=== PATIENT | female | born 1980 | race Caucasian/White ===

== ENCOUNTER 2019-08-11 11:01 | Emergency (ER) | payer MEDICAID, SELFPAY ==
[2019-08-11 11:28] VITALS: BP 119/60; PULSE 80; RESP 18; TEMP 36.3; O2SAT 98
--- NOTE | 2019-08-11 12:57 | ED.DENTAL ---
HPI - Dental/Oral General Chief complaint: Dental/Oral Stated complaint: Tooth pain Source: patient Mode of arrival: ambulatory Limitations: no limitations History of Present Illness HPI Narrative: This 38-year-old developed swelling and pain in her left jaw 3 days ago. She states she had chills last night but no fever. She is attempting to get in to see a dentist or oral surgeon to excise some of her decayed teeth. She has sulindac listed as an allergy but took ibuprofen morning with no allergy symptoms. She is sexually active/does not use control. LMP onset 1 week ago Related Data Home Medications Medication Instructions Recorded Confirmed clonazepam 0.5 mg PO BID 08/11/19 08/11/19 Allergies Allergy/AdvReac Type Severity Reaction Status Date / Time azithromycin Allergy Unknown Verified 06/23/15 10:09 nortriptyline Allergy Unknown Verified 06/23/15 10:47 sulindac Allergy Unknown Verified 06/23/15 10:47 Review of Systems Constitutional: Constitutional: Reports no additional constitutional complaints Gastrointestinal: Gastrointestinal: Denies diarrhea, Denies nausea and Denies vomiting [facility] Past Medical History Medical History Anxiety, generalized Social History Social History Smoking status: Current every day smoker Exam Const: General: no acute distress HENMT: Other: Swelling of left lower face/ no erythema. This area is tender but not indurated. She is able to fully open his mouth. She has complete deterioration of the left lower mandibular teeth down to the gums. There is no site of gum swelling or purulent d.c. Neck: Neck: no lymphadenopathy noted Course Vital Signs Vital signs: Vital Signs Temperature 36.3 C L 08/11/19 11:28 Pulse Rate 80 08/11/19 11:28 Respiratory Rate 18 08/11/19 11:28 Blood Pressure 119/60 08/11/19 11:28 Pulse Oximetry 98 08/11/19 11:28 Temperature 36.3 C L 08/11/19 11:28 Pulse Rate 80 08/11/19 11:28 Respiratory Rate 16 08/11/19 13:11 Blood Pressure 119/60 08/11/19 11:28 Pulse Oximetry 98 08/11/19 11:28 MDM - Dental/Oral MDM Narrative Medical decision making narrative: Evidence of tooth abscess formation Differential Diagnosis Differential diagnosis: Likely gingival abscess, dental caries and dental abscess Discharge Plan Discharge Clinical Impression: Dental abscess, Dental caries Patient Disposition: Home, Self-Care Condition: Stable Instructions: Antibiotic Form, Dental Abscess (ED) Additional Instructions: Return if increasing pain, swelling or fever. Follow up with a dentist See primary care doctor to start control stop smoking Prescriptions: New naproxen [EC-Naproxen] 500 mg tablet,delayed release (DR/EC) 500 mg PO BID PRN (Reason: pain) Qty: 14 RF: 0 amoxicillin 500 mg capsule 500 mg PO TID Qty: 21 RF: 0 No Action clonazepam 0.5 mg tablet 0.5 mg PO BID RF: 0 Interventions: Discharge Disposition Last Done: 08/11/19 13:11 Follow-up/Referrals: UNKNOWN,DOCTOR [Primary Care Provider] - Stand Alone Forms: Work/School Release IP Time of Disposition: 13:01 Discharge Date/Time: 08/11/19 13:12
[2019-08-11 13:11] VITALS: RESP 16
== END 2019-08-11 13:12 | disposition home or self-care (01) ==
PROVIDERS: Emergency Provider Family Medicine
DX: K04.7 Periapical abscess without sinus (principal); K02.9 Dental caries, unspecified
CPT/HCPCS: 99283

== ENCOUNTER 2020-06-23 20:13 | Emergency (ER) | payer OTHER, SELFPAY ==
--- NOTE | ~2020-06-23 | XR_ITS ---
EXAMINATION: XR chest 2V DATE: 06/23/2020 21:01 INDICATION: Shortness of breath. Wheezing. TECHNIQUE: Frontal and lateral views of the chest were obtained. COMPARISON: Chest 2 views 10/22/2017 FINDINGS: The chest demonstrates clear lungs without pneumonia, pleural effusion, or pneumothorax. Th e heart size is normal. There is an old healed left rib fracture. IMPRESSION: 1. No acute cardiopulmonary disease. Reviewed, dictated and finalized at location A.
[2020-06-23 20:42] VITALS: PULSE 74; RESP 16; O2SAT 94
[2020-06-23] MEDS: IPRATROPIUM 0.5 MG/ALBUTEROL SULFATE 2.5 MG AMPUL.NEB 3 ML INHALATION (20:42)
--- NOTE | 2020-06-23 20:42 | ED.SOB ---
HPI - SOB/Dyspnea General Chief Complaint: Shortness of Breath/Dyspnea Stated Complaint: possible bronchitis Source: patient and family Mode of arrival: ambulatory History of Present Illness HPI Narrative: This is a 39-year-old female smoker that presents with a 3 month history of shortness of breath with some wheezing that gotten worse over last couple of days with no fever or chills some audible wheezing with some mild cough nonproductive with some shortness of breath with no chest pain or chest tightness no nausea vomiting no abdominal pain. The patient is a smoker and currently no abdominal pain no nasal flaring. MD elicited complaint: shortness of breath Pertinent past history: COPD Onset (ago): month(s) Timing: intermittent Severity: moderate Exacerbating factors: nothing Relieving factors: bronchodilators Related Data Home Medications Medication Instructions Recorded Confirmed clonazepam 0.5 mg PO BID 08/11/19 08/11/19 Allergies Allergy/AdvReac Type Severity Reaction Status Date / Time azithromycin Allergy Unknown Verified 06/23/15 10:09 nortriptyline Allergy Unknown Verified 06/23/15 10:47 sulindac Allergy Unknown Verified 06/23/15 10:47 Review of Systems Review of Systems: All systems reviewed & are unremarkable except as noted in HPI and below PMFSH Past Medical History Medical History (Updated 06/23/20 @ 20:45 by Thony Vegas MD) Anxiety, generalized Social History Social History Smoking status: Current every day smoker Exam Const: General: no acute distress Orientation/consciousness: patient oriented x3 HENMT: Head: normal to inspection Eyes: Pupils: Equal, round and reactive pupils present Neck: Neck: normal visual inspection Chest: Chest palpation & inspection: normal inspection of the chest Resp: Effort & Inspection: normal respiratory effort Auscultation: wheezes and diminished lung sounds GI: GI Palp: Yes Soft to palpation : General: Yes no CVA tenderness Skin: General skin exam: normal color Rashes: no rashes Neuro: General: patient oriented x3 Psych: Mental Status: mental status grossly normal Course Course Emergency Course: patient received DuoNebs and Solu-Medrol along with a dose of ceftriaxone symptoms have improved advised to establish care with primary care physician and take medicine as prescribed. Critical Care Time Critical Care Time Critical Care Time: No Discharge Plan Discharge Clinical Impression: Acute bronchitis Qualifiers: Bronchitis organism: unspecified organism Qualified Code(s): J20.9 - Acute bronchitis, unspecified Patient Disposition: Home, Self-Care Condition: Stable Instructions: Antibiotic Form, Acute Bronchitis (ED) Additional Instructions: follow-up with primary care physician and advised to establish care, take medicine as prescribed. Prescriptions: New levofloxacin 500 mg tablet 500 mg PO DAILY Qty: 30 RF: 5 albuterol sulfate [ProAir HFA] 90 mcg/actuation HFA aerosol inhaler 2 puff inhalation QID PRN (Reason: shortness of breath or wheezing) Qty: 6.7 RF: 0 methylprednisolone [Medrol (Scott)] 4 mg tablets,dose pack See Rx Instructions .ROUTE .COMPLEX Qty: 21 RF: 0 levofloxacin 500 mg tablet 500 mg PO DAILY Qty: 7 RF: 0 No Action clonazepam 0.5 mg tablet 0.5 mg PO BID RF: 0 naproxen [EC-Naproxen] 500 mg tablet,delayed release (DR/EC) 500 mg PO BID PRN (Reason: pain) Qty: 14 RF: 0 amoxicillin 500 mg capsule 500 mg PO TID Qty: 21 RF: 0 Follow-up/Referrals: UNKNOWN,DOCTOR [Primary Care Provider] -
[2020-06-23 20:49] VITALS: PULSE 85; RESP 16; O2SAT 98
[2020-06-23 20:53] VITALS: BP 137/87; PULSE 77; RESP 20; TEMP 36.7; O2SAT 94
[2020-06-23] MEDS: LIDOCAINE HCL 1% LOCAL INJ 20 ML VIAL (21:10)
[2020-06-23] MEDS: cefTRIAXone 1 GM VIAL IM (21:10)
[2020-06-23] MEDS: methylPREDNISolone SOD SUCC 40 MG VIAL IM (21:10)
[2020-06-23 21:27] VITALS: BP 140/88; PULSE 80; RESP 20; TEMP 36.7; O2SAT 97
== END 2020-06-23 21:29 | disposition home or self-care (01) ==
PROVIDERS: Emergency Provider Emergency Medicine
DX: J20.9 Acute bronchitis, unspecified (principal)
CPT/HCPCS: 71046; 94640; 96372; 99283; 99284; J0696; J2920

== ENCOUNTER 2020-10-24 23:29 | Emergency (ER) | payer OTHER, SELFPAY ==
[2020-10-24 23:29] VITALS: BP 124/90; PULSE 75; RESP 20; TEMP 36.3; O2SAT 100
--- NOTE | 2020-10-24 23:40 | ED.EAR ---
HPI - Ear Problem General Chief complaint: Ear Stated complaint: Left Ear Pain Time Seen by Provider: 10/24/20 23:40 History of Present Illness HPI Narrative: 40-year-old female patient is here with complaints of something in her ears for several months now. she denies any injury or any awareness of any foreign body there. Patient denies any routine medications or drugs Related Data Allergies Allergy/AdvReac Type Severity Reaction Status Date / Time azithromycin Allergy Unknown Rash Verified 06/23/20 20:59 nortriptyline Allergy Unknown Unknown Verified 06/23/20 20:59 sulindac Allergy Unknown Unknown Verified 06/23/20 20:59 Review of Systems Review of Systems: All systems reviewed & are unremarkable except as noted in HPI and below PMFSH Past Medical History Medical History (Updated 10/24/20 @ 23:48 by Rosie Etienne MD) Anxiety, generalized Social History Social History Smoking status: Current every day smoker Gender identity (if verbalized by the patient): Female Exam Narrative: alert female who appears very anxious and somewhat restless. No acute distress. Stable vital signs HEENT external ears are normal bilaterally. There is no swelling or pre tragal sign. And canals are clear bilaterally and TMs are visualized bilaterally. There is no cerumen or any foreign body noted in the ears. The rest of the HEENT is normal. There is no obvious respiratory distress. Heart tones are regular. Patient appears very anxious . rest of the physical examination is normal. Course Course Emergency Course: Patient has been reassured that there is no foreign body or evidence of infection the ears. She has been advised to use [id number] r eardrops. She leaves without written discharge instructions. Discharge Plan Discharge Clinical Impression: Anxiety, generalized, Irritation of left ear Patient Disposition: Home, Self-Care Condition: Stable Follow-up/Referrals: UNKNOWN,DOCTOR [Primary Care Provider] -
== END 2020-10-24 23:45 | disposition home or self-care (01) ==
PROVIDERS: Emergency Provider Emergency Medicine
DX: R41.9 Unspecified symptoms and signs involving cognitive functions and awareness (principal); H92.02 Otalgia, left ear
CPT/HCPCS: 99281; 99282

== ENCOUNTER 2020-11-07 01:55 | Emergency (ER) | payer OTHER, SELFPAY ==
[2020-11-07 02:24] VITALS: BP 106/72; PULSE 80; RESP 18; TEMP 36.6; O2SAT 98
--- NOTE | 2020-11-07 03:05 | ED.EAR ---
HPI - Ear Problem General Chief complaint: Ear Stated complaint: Ear Pain Time Seen by Provider: 11/07/20 01:57 Source: patient and RN notes reviewed Mode of arrival: ambulatory Limitations: no limitations History of Present Illness MD Complaint: ear pain Location: bilateral Duration: constant Severity: moderate Relieving factors: nothing Exacerbating factors: nothing Discharge from ear: Reports no Associated symptoms ear: tinnitus Treatment prior to arrival: none Related Data Allergies Allergy/AdvReac Type Severity Reaction Status Date / Time azithromycin Allergy Unknown Rash Verified 06/23/20 20:59 nortriptyline Allergy Unknown Unknown Verified 06/23/20 20:59 sulindac Allergy Unknown Unknown Verified 06/23/20 20:59 Review of Systems Review of Systems: All systems reviewed & are unremarkable except as noted in HPI and below Constitutional: Constitutional: Reports as per HPI and Reports no additional constitutional complaints Eyes: Eyes: Reports as per HPI and Reports no additional eye complaints ENT: Reports system reviewed and no additional complaints, except as documented and Reports as per HPI Cardiovascular: Cardiovascular: Reports as per HPI and Reports no additional cardiovascular complaints Respiratory: Respiratory: Reports as per HPI and Reports no additional respiratory complaints Gastrointestinal: Gastrointestinal: Reports as per HPI and Reports no additional gastrointestinal complaints Genitourinary: Genitourinary: Reports no additional female genitourinary complaints and Reports as per HPI Musculoskeletal: Musculoskeletal: Reports no additional musculoskeletal complaints and Reports as per HPI Integumentary/Breasts: Skin/Breast: Reports system reviewed and no additional complaints, except as docu and Reports as per HPI Neurologic: Reports system reviewed and no additional complaints, except as documented and Reports as per HPI Psychiatric: Psychiatric: Reports no additional psychiatric complaints and Reports as per HPI Endocrine: Endocrine: Reports no additional endocrine complaints and Reports as per HPI Hematologic/Lymphatic: Hematologic/Lymphatic: Reports no additional hematologic/lymphatic complaints and Reports as per HPI Allergic/Immunologic: Allergic/Immunologic: Reports no additional allergic/immunologic complaints and Reports as per HPI PMFSH Past Medical History Medical History Anxiety, generalized Social History Social History Smoking status: Current every day smoker Gender identity (if verbalized by the patient): Female Exam Const: General: no acute distress and alert Nutritional Appearance: thin Orientation/consciousness: patient oriented x3 HENMT: Head: normal to inspection Ears: external ears normal General nose exam: Normal external nose present and Normal nares present Throat: posterior oropharynx normal Other: left TM was red and dull. Right TM was dull. no FB seen. Eyes: Conjunctivae: conjunctivae normal Pupils: Equal, round and reactive pupils present EOM: EOMs intact bilaterally Neck: Neck: normal visual inspection and no lymphadenopathy Chest: Chest palpation & inspection: normal inspection of the chest Resp: Effort & Inspection: normal respiratory effort Auscultation: clear to auscultation bilaterally Cardio: Rate: regular rate Rhythm: regular rhythm GI: Auscultation: normal bowel sounds : General: Yes no CVA tenderness Back/Spine/Pelvis: Back: no CVA tenderness Skin: General skin exam: normal color Rashes: no rashes Neuro: General: patient oriented x3, moves all extremities, no focal motor deficits and CN's II-XI intact bilaterally Speech: normal speech Extrem: General: normal to inspection and no pedal edema Psych: Appearance: grossly normal and well kempt Mental Status: mental status grossly normal Affect: normal affec
[2020-11-07] MEDS: IBUPROFEN 400 MG TABLET 800 MG PO (03:09)
[2020-11-07 03:17] VITALS: BP 110/64; PULSE 84; RESP 18; TEMP 36.6; O2SAT 98
== END 2020-11-07 03:24 | disposition home or self-care (01) ==
PROVIDERS: Emergency Provider Emergency Medicine
DX: H66.90 Otitis media, unspecified, unspecified ear (principal); H69.83 Other specified disorders of Eustachian tube, bilateral
CPT/HCPCS: 99283; A9270

== ENCOUNTER 2020-11-19 18:12 | Emergency (ER) | payer OTHER, SELFPAY ==
[2020-11-19 18:20] VITALS: BP 132/89; PULSE 72; RESP 20; TEMP 36.8; O2SAT 98
--- NOTE | 2020-11-19 18:41 | ED.EAR ---
HPI - Ear Problem General Chief complaint: Ear Stated complaint: something in ears Source: patient History of Present Illness HPI Narrative: patient has the sensation that she has a worm in her right ear canal, the patient has been in our facility and was examined for the similar event, also saw her primary care physician which is examined her for a similar event. Currently she is complaining of sensation of worm in her right ear canal with some no discharge does have some pain in her right ear canal with no fever chills no nausea vomiting no sinus congestion. Complaint: ear pain Location: right ear Duration: constant Severity: moderate Related Data Allergies Allergy/AdvReac Type Severity Reaction Status Date / Time azithromycin Allergy Unknown Rash Verified 06/23/20 20:59 nortriptyline Allergy Unknown Unknown Verified 06/23/20 20:59 sulindac Allergy Unknown Unknown Verified 06/23/20 20:59 Review of Systems Review of Systems: All systems reviewed & are unremarkable except as noted in HPI and below PMFSH Past Medical History Medical History (Updated 11/19/20 @ 18:45 by Thony Vegas MD) Anxiety, generalized Social History Social History Smoking status: Current every day smoker Gender identity (if verbalized by the patient): Female Exam Const: General: no acute distress Orientation/consciousness: patient oriented x3 HENMT: Head: normal to inspection Other: Right ear canal erythematous with no foreign object, no wax buildup no current drainage. Eyes: Conjunctivae: conjunctivae normal Pupils: Equal, round and reactive pupils present Neck: Neck: normal visual inspection and no lymphadenopathy Chest: Chest palpation & inspection: normal inspection of the chest Cardio: Rate: regular rate Rhythm: regular rhythm GI: GI Palp: Yes Soft to palpation Neuro: General: patient oriented x3 Extrem: General: normal to inspection Psych: Mental Status: mental status grossly normal Course Course Emergency Course: Evaluated right and left ear canal and advised patient that there is no foreign object, no were arm that she describes in her ear canals bilaterally the ears do appear erythematous with no drainage no foreign object visualized. Patient disagrees and voiced that she has some getting out here, but has left our facility. Critical Care Time Critical Care Time Critical Care Time: No Discharge Plan Discharge Clinical Impression: Otitis externa Qualifiers: Otitis externa type: unspecified type Chronicity: acute Laterality: right Qualified Code(s): H60.501 - Unspecified acute noninfective otitis externa, right ear Patient Disposition: Home, Self-Care Condition: Stable Instructions: Antibiotic Form, Swimmer's Ear (ED) Additional Instructions: take medicine as prescribed and follow-up primary care physician. Prescriptions: New Cortisporin-TC 3.3-3-10-0.5 mg/mL drops,suspension 5 drp RIGHT EAR QID 7 Days Qty: 10 RF: 0 Follow-up/Referrals: UNKNOWN,DOCTOR [Primary Care Provider] - Time of Disposition: 18:46
--- NOTE | 2020-11-19 18:45 | PC.NURSE ---
1924 dr han and myself in room with pt. pt remains fidgety in bed. dr han looking in bilateral ears. ear assessment completed. 1933 pt leaving department , attempted to talk to pt about leaving, pt just kept walking out of facility.
== END 2020-11-19 18:34 | disposition home or self-care (01) ==
PROVIDERS: Emergency Provider Emergency Medicine
DX: H60.501 Unspecified acute noninfective otitis externa, right ear (principal)
CPT/HCPCS: 99283

== ENCOUNTER 2020-12-30 15:03 | Emergency (ER) | payer OTHER, SELFPAY ==
[2020-12-30 15:12] VITALS: BP 109/82; PULSE 86; RESP 16; TEMP 36.6; O2SAT 100
--- NOTE | 2020-12-30 15:33 | ED.ALLEREA ---
HPI - Allergic Reaction General Chief complaint: Skin/Abscess/Foreign Body Stated complaint: maggots falling out of hair Time Seen by Provider: 12/30/20 15:05 Source: patient and RN notes reviewed Mode of arrival: ambulatory Limitations: no limitations History of Present Illness complaint: allergic reaction (scalp itching post hair-washing) Exposure: unknown Symptoms: itching Severity: mild Treatment prior to arrival: none Previous Allergic Reaction History: other (multiple scalp and ear complaints.) Related Data Home Medications Medication Instructions Recorded Confirmed No Home Medications 12/30/20 12/30/20 Allergies Allergy/AdvReac Type Severity Reaction Status Date / Time azithromycin Allergy Unknown Rash Verified 11/23/20 08:11 nortriptyline Allergy Unknown Unknown Verified 11/23/20 08:11 sulindac Allergy Unknown Unknown Verified 11/23/20 08:11 Review of Systems Review of Systems: All systems reviewed & are unremarkable except as noted in HPI and below Constitutional: Constitutional: Reports body ache(s) ENT: Reports nasal congestion Respiratory: Respiratory: Reports chest congestion and Reports dyspnea PMFSH Past Medical History Medical History Anxiety, generalized Contact dermatitis Social History Social History Smoking status: Current every day smoker Gender identity (if verbalized by the patient): Female Exam Const: General: cooperative, healthy appearing and anxious Nutritional Appearance: well nourished HENMT: Head: normocephalic, atraumatic and other (pt hair was combed thoroughly with no FB or insects detected. no acute scal) Ears: hearing grossly normal bilaterally and external ears normal General nose exam: Normal external nose present and Normal nares present Face and sinus: sinuses nontender Mouth: Yes Normal oral and palatal mucosa present, Yes lip normal, Yes tongue normal, Yes oropharynx normal and Yes moist mucous membranes Throat: posterior oropharynx normal Eyes: General: appearance normal, both eyes and all related structures Eyelids: eyelids normal Conjunctivae: conjunctivae normal Sclera: sclerae normal Cornea: corneas normal Pupils: Equal, round and reactive pupils present Neck: Neck: normal visual inspection, full ROM and no lymphadenopathy Chest: Chest palpation & inspection: normal inspection of the chest Resp: Effort & Inspection: normal respiratory effort and able to speak in complete sentences Auscultation: clear to auscultation bilaterally Percussion: percussion normal Cardio: Jugular venous distension: no JVD Palpation: normal PMI Rate: regular rate Rhythm: regular rhythm Peripheral pulses: Peripheral pulses 2+ throughout GI: Inspection: normal to inspection GI Palp: No abdominal tenderness Percussion: Yes normal to percussion Auscultation: normal bowel sounds : General: No CVA tenderness and Yes no CVA tenderness Back/Spine/Pelvis: Back: no CVA tenderness Thoracic/Lumbar Spine: thoracic and lumbar spine normal to inspection Skin: General skin exam: normal color and no rashes or lesions noted Rashes: no rashes Wounds: no wounds Hair: normal Neuro: General: patient oriented x3, gait normal, no meningeal signs, no focal motor deficits and CN's II-XI intact bilaterally Cranial nerves: Yes CN's II-XII intact bilaterally Cognition (Neuro): normal cognition Speech: normal speech Gait exam (Neuro): Normal gait present Extrem: General: normal to inspection, full ROM, capillary refill normal and no pedal edema Right upper extremity: normal to inspection and full ROM Left upper extremity: normal to inspection and full ROM Right lower extremity: normal to inspection and full ROM Left lower extremity: normal to inspection and full ROM Psych: Appearance: grossly normal and well kempt Mental Status: mental status grossly normal Affect
[2020-12-30] MEDS: methylPREDNISolone SOD SUCC 125 MG VIAL IM (15:41)
[2020-12-30] MEDS: diphenhydrAMINE HCl CAP 25 MG CAPSULE 50 MG PO (15:41)
[2020-12-30 15:59] VITALS: BP 113/62; PULSE 80; RESP 16; O2SAT 100
== END 2020-12-30 16:00 | disposition home or self-care (01) ==
PROVIDERS: Emergency Provider Emergency Medicine
DX: L23.9 Allergic contact dermatitis, unspecified cause (principal)
CPT/HCPCS: 96372; 99283; A9270; J2930

== ENCOUNTER 2021-01-07 18:47 | Emergency (ER) | payer OTHER, SELFPAY ==
[2021-01-07 19:59] VITALS: BP 123/94; PULSE 71; RESP 20; TEMP 36.1; O2SAT 99
--- NOTE | 2021-01-07 20:59 | ED.SKABFB ---
HPI - Skin/Abscess/Foreign Bdy General Chief complaint: Skin/Abscess/Foreign Body Stated complaint: head pain Time Seen by Provider: 01/07/21 19:01 Source: patient and RN notes reviewed Mode of arrival: ambulatory Limitations: no limitations History of Present Illness complaint: other (itchy, burning scalp x several weeks. mild improvement with PO Benadryl.) Onset (ago): week(s) (4) Tetanus up to date: unsure Location: head Severity: mild Severity scale (1-10): 2 Quality: burning and pruritic Pain Consistency: other (pain-free) Relieving factors: medication Exacerbating factors: none Context: none Associated symptoms: itching Treatments prior to arrival: other (did not take Benadryl today.) Related Data Allergies Allergy/AdvReac Type Severity Reaction Status Date / Time azithromycin Allergy Unknown Rash Verified 01/07/21 20:04 nortriptyline Allergy Unknown Unknown Verified 01/07/21 20:04 sulindac Allergy Unknown Unknown Verified 01/07/21 20:04 Review of Systems Review of Systems: All systems reviewed & are unremarkable except as noted in HPI and below PMFSH Past Medical History Medical History Anxiety, generalized Contact dermatitis Social History Social History Smoking status: Current every day smoker Gender identity (if verbalized by the patient): Female Exam Const: General: healthy appearing, no acute distress and alert Nutritional Appearance: well nourished Orientation/consciousness: patient oriented x3 Limitations: no limitations HENMT: Head: normal to inspection Ears: external ears normal and TM's normal bilaterally General nose exam: Normal external nose present and Normal nares present Mouth: Yes lip normal and Yes moist mucous membranes Teeth and gingiva: dentition normal Eyes: Conjunctivae: conjunctivae normal Pupils: Equal, round and reactive pupils present EOM: EOMs intact bilaterally Neck: Neck: normal visual inspection and no lymphadenopathy Chest: Chest palpation & inspection: normal inspection of the chest Resp: Effort & Inspection: normal respiratory effort Auscultation: clear to auscultation bilaterally Cardio: Rate: regular rate Rhythm: regular rhythm GI: GI Palp: Yes Soft to palpation and No Tenderness to palpation present (GI) Percussion: Yes normal to percussion Auscultation: normal bowel sounds : General: Yes no CVA tenderness Back/Spine/Pelvis: Back: no CVA tenderness Skin: General skin exam: normal color Rashes: no rashes Other: no scalp abnormality. hair was combed through thoroughly with no acute scalp or hair abnormality seen Neuro: General: patient oriented x3, moves all extremities, no meningeal signs, no focal motor deficits and CN's II-XI intact bilaterally Extrem: General: normal to inspection and no pedal edema Psych: Appearance: grossly normal and well kempt Mental Status: mental status grossly normal Affect: Anxious affect present Attitude: cooperative Thought content: Yes Normal thought content present Course Course Emergency Course: Pt was stable with less sxs post tx in the ED. Reevaluation(s) Date: 01/07/21 Time: 19:35 Vital Signs Vital signs: Vital Signs Temperature 36.1 C L 01/07/21 19:59 Pulse Rate 71 01/07/21 19:59 Respiratory Rate 20 01/07/21 19:59 Blood Pressure 123/94 H 01/07/21 19:59 Pulse Oximetry 99 01/07/21 19:59 Temperature 36.1 C L 01/07/21 19:59 Pulse Rate 71 01/07/21 19:59 Respiratory Rate 20 01/07/21 19:59 Blood Pressure 123/94 H 01/07/21 19:59 Pulse Oximetry 99 01/07/21 19:59 MDM - Skin/Abscess/Foreign Bdy Differential Diagnosis Differential diagnosis: Likely urticaria, allergic reaction to drug, eczema and contact dermatitis Medical Records Attestation: I reviewed the patient's medical records. Critical Care Time Critical Care Time Critical Care Time: No Total
[2021-01-07] MEDS: methylPREDNISolone SOD SUCC 125 MG VIAL IM (21:23)
[2021-01-07] MEDS: diphenhydrAMINE HCl CAP 25 MG CAPSULE 50 MG PO (21:23)
[2021-01-07 21:24] VITALS: BP 120/86; PULSE 70; RESP 20; TEMP 36.7; O2SAT 100
== END 2021-01-07 21:40 | disposition home or self-care (01) ==
PROVIDERS: Emergency Provider Emergency Medicine
DX: F41.9 Anxiety disorder, unspecified (principal); L23.9 Allergic contact dermatitis, unspecified cause
CPT/HCPCS: 96372; 99283; A9270; J2930

== ENCOUNTER 2021-04-26 04:06 | Emergency (ER) | payer OTHER, SELFPAY ==
[2021-04-26 04:12] VITALS: BP 119/72; PULSE 104; RESP 18; TEMP 36.4; O2SAT 100
--- NOTE | 2021-04-26 04:41 | ED.GENADULT ---
HPI - General Adult General Chief complaint: Unspecified Stated complaint: itching, red scalp, hair loss X 1 month Time Seen by Provider: 04/26/21 04:36 Source: patient Mode of arrival: ambulatory Limitations: no limitations History of Present Illness HPI narrative: Patient is a 40-year-old female complaining of losing her hair and been going on for months, I used to have long hair now it is short . Patient states that she has not seen any doctor for this. Patient states that she stopped going to her primary care physician because her doctor thinks that she is crazy and he does not do anything for her problems. Patient denies any heat or cold intolerance. Patient denies any weight loss or weight gain. Related Data Allergies Allergy/AdvReac Type Severity Reaction Status Date / Time azithromycin Allergy Unknown Rash Verified 04/26/21 04:14 nortriptyline Allergy Unknown Unknown Verified 04/26/21 04:14 sulindac Allergy Unknown Unknown Verified 04/26/21 04:14 Review of Systems Review of Systems: All systems reviewed & are unremarkable except as noted in HPI and below PMFSH Past Medical History Medical History Anxiety, generalized Contact dermatitis Social History Social History Smoking status: Current every day smoker Gender identity (if verbalized by the patient): Female Exam Const: General: cooperative, healthy appearing, comfortable, no acute distress, well developed, alert and awake; No confusion Orientation/consciousness: oriented to person, oriented to place, oriented to time, patient oriented x3 and No confusion Limitations: no limitations HENMT: Head: normal to inspection, normocephalic and atraumatic Ears: hearing grossly normal bilaterally, TM normal on the right and TM normal on the left General nose exam: Normal external nose present, Normal nares present and No nasal discharge present Face and sinus: normal facial exam Mouth: Yes Normal oral and palatal mucosa present, Yes lip normal, Yes tongue normal and Yes oropharynx normal Throat: posterior oropharynx normal, tonsils normal and uvula midline Other: Full set of hair, no alopecia Eyes: General: appearance normal, both eyes and all related structures Pupils: Equal, round and reactive pupils present EOM: EOMs intact bilaterally Neck: Neck: normal visual inspection, full ROM, no lymphadenopathy and no meningeal signs Chest: Chest palpation & inspection: normal inspection of the chest Resp: Effort & Inspection: normal respiratory effort, able to speak in complete sentences, no respiratory distress and not tachypneic Auscultation: clear to auscultation bilaterally, no crackles, no rales, no rhonchi and no wheezes Cardio: Rate: regular rate Rhythm: regular rhythm GI: Inspection: normal to inspection GI Palp: No abdominal tenderness, Yes Soft to palpation, No Tenderness to palpation present (GI), No Guarding due to palpation present (GI), No Rigid due to palpation and No Rebound tenderness present Auscultation: normal bowel sounds : General: Yes no CVA tenderness Back/Spine/Pelvis: Back: no CVA tenderness Skin: General skin exam: normal color, no rashes or lesions noted, elasticity normal and turgor normal Neuro: General: oriented to person, oriented to place, oriented to time, patient oriented x3, tone normal, moves all extremities, Normal light touch and pain sensation, no meningeal signs, no focal motor deficits, CN's II-XI intact bilaterally and No confusion Cranial nerves: Yes Equal, round and reactive pupils present Speech: No Abnormal speech present Sensory Exam: No Sensory deficit (Neuro) Extrem: General: normal to inspection, full ROM and capillary refill normal Psych: Appearance: grossly normal and well kempt Mental Status: mental status grossly normal Speech and movement: Normal speech and movement present Affect: normal
[2021-04-26 04:53] VITALS: BP 117/76; PULSE 68; RESP 18; O2SAT 97
== END 2021-04-26 04:54 | disposition home or self-care (01) ==
PROVIDERS: Emergency Provider Emergency Medicine
DX: L65.9 Nonscarring hair loss, unspecified (principal); F41.9 Anxiety disorder, unspecified
CPT/HCPCS: 99281

== ENCOUNTER 2021-07-25 10:41 | Emergency (ER) | payer OTHER, SELFPAY ==
[2021-07-25 10:50] VITALS: BP 104/59; PULSE 89; RESP 18; TEMP 36.2; O2SAT 97
--- NOTE | 2021-07-25 11:08 | ED.SKABFB ---
HPI - Skin/Abscess/Foreign Bdy General Chief complaint: Skin/Abscess/Foreign Body Stated complaint: NECK IS SWOLLEN Time Seen by Provider: 07/25/21 10:45 Source: patient and RN notes reviewed Mode of arrival: ambulatory Limitations: no limitations History of Present Illness complaint: abscess/boil (posterior neck hair-line single firm swelling with a crusted punctum.) Onset (ago): day(s) (2) Tetanus up to date: unsure Location: neck Severity: mild Severity scale (1-10): 1 Quality: aching Pain Consistency: constant Relieving factors: none Exacerbating factors: none Context: none Associated symptoms: denies other symptoms Treatments prior to arrival: none Related Data Allergies Allergy/AdvReac Type Severity Reaction Status Date / Time azithromycin Allergy Unknown Rash Verified 04/26/21 04:14 nortriptyline Allergy Unknown Unknown Verified 04/26/21 04:14 sulindac Allergy Unknown Unknown Verified 04/26/21 04:14 Review of Systems Review of Systems: All systems reviewed & are unremarkable except as noted in HPI and below PMFSH Past Medical History Medical History Anxiety, generalized Contact dermatitis Folliculitis Social History Social History Smoking status: Current every day smoker Gender identity (if verbalized by the patient): Female Exam Const: General: no acute distress and alert Orientation/consciousness: patient oriented x3 Limitations: no limitations HENMT: Head: normal to inspection Ears: external ears normal, TM's normal bilaterally and EAC's normal General nose exam: Normal external nose present and Normal nares present Face and sinus: normal facial exam and sinuses nontender Mouth: Yes moist mucous membranes Eyes: Conjunctivae: conjunctivae normal Pupils: Equal, round and reactive pupils present EOM: EOMs intact bilaterally Neck: Other: posterior neck hairline firm 0.2 cm diameter swelling with a crusted punctum. no acute redness or marked tenderness. Chest: Chest palpation & inspection: normal inspection of the chest Resp: Effort & Inspection: normal respiratory effort Auscultation: clear to auscultation bilaterally Cardio: Rate: regular rate Rhythm: regular rhythm GI: Auscultation: normal bowel sounds : General: Yes no CVA tenderness Back/Spine/Pelvis: Back: no CVA tenderness Skin: General skin exam: normal color Neuro: General: patient oriented x3, moves all extremities, no meningeal signs, no focal motor deficits and CN's II-XI intact bilaterally Extrem: General: normal to inspection Psych: Appearance: grossly normal Mental Status: mental status grossly normal Affect: normal affect Thought content: Yes Normal thought content present Course Course Emergency Course: Pt was stable in the ED, less painful. Reevaluation(s) Reevaluation #1: VSS. pt ambulated normally in the ED. Date: 07/25/21 Time: 10:59 MDM - Skin/Abscess/Foreign Bdy Differential Diagnosis Differential diagnosis: Likely abscess of skin or subcutaneous tissue, cellulitis and insect bites Medical Records Attestation: I reviewed the patient's medical records. Critical Care Time Critical Care Time Critical Care Time: No Total Critical Care Time: 0 Discharge Plan Discharge Clinical Impression: Folliculitis Patient Disposition: Home, Self-Care Condition: Stable Instructions: Antibiotic Form, Folliculitis (ED) Additional Instructions: Home. May RTC prn. PMD in 1-2 days. Rx below. Dressing twice a day. Moist heat. Prescriptions: New sulfamethoxazole-trimethoprim [Bactrim DS] 800-160 mg tablet 1 tablet PO Q12H Qty: 20 RF: 0 Follow-up/Referrals: UNKNOWN,DOCTOR [Primary Care Provider] - Time of Disposition: 11:12
[2021-07-25 11:12] VITALS: BP 108/59; PULSE 89; RESP 18; TEMP 36.2; O2SAT 97
[2021-07-25] MEDS: ACETAMINOPHEN 325 MG TABLET 650 MG PO (11:17)
== END 2021-07-25 11:21 | disposition home or self-care (01) ==
PROVIDERS: Emergency Provider Emergency Medicine
DX: L73.9 Follicular disorder, unspecified (principal)
CPT/HCPCS: 99283; A9270

== ENCOUNTER 2021-10-27 02:28 | Emergency (ER) | payer OTHER, SELFPAY ==
--- NOTE | 2021-10-27 02:32 | ED.DENTAL ---
HPI - Dental/Oral General Chief complaint: Dental/Oral Stated complaint: tooth pain Time Seen by Provider: 10/27/21 02:32 Source: patient Mode of arrival: ambulatory History of Present Illness HPI Narrative: 41-year-old female with extensive dental caries presents to the ER with with a 3 day history of -- left lower jaw pain/ swelling -- left lower dental pain -- wants to be checked for scabies and lice patient has multiple teeth missing in all the 4 corners. She is complaining of pain in tooth number 29 and 31. 29 is partially fractured. MD Complaint: tooth pain Onset (ago): day(s) ( for past 3 days) Duration: constant Relieving factors: nothing Exacerbating factors: nothing Context: history of dental caries Treatment prior to arrival: none Related Data Allergies Allergy/AdvReac Type Severity Reaction Status Date / Time azithromycin Allergy Unknown Rash Verified 04/26/21 04:14 nortriptyline Allergy Unknown Unknown Verified 04/26/21 04:14 sulindac Allergy Unknown Unknown Verified 04/26/21 04:14 Review of Systems Review of Systems: All systems reviewed & are unremarkable except as noted in HPI and below Constitutional: Constitutional: Reports as per HPI and Reports no additional constitutional complaints Eyes: Eyes: Reports as per HPI and Reports no additional eye complaints ENT: Reports system reviewed and no additional complaints, except as documented and Reports as per HPI Comments: Extensive dental caries. Pain and swelling of the right lower jaw with dental pain Cardiovascular: Cardiovascular: Reports as per HPI and Reports no additional cardiovascular complaints Respiratory: Respiratory: Reports as per HPI and Reports no additional respiratory complaints Gastrointestinal: Gastrointestinal: Reports as per HPI and Reports no additional gastrointestinal complaints Genitourinary: Genitourinary: Reports no additional female genitourinary complaints and Reports as per HPI Musculoskeletal: Musculoskeletal: Reports no additional musculoskeletal complaints and Reports as per HPI Integumentary/Breasts: Skin/Breast: Reports system reviewed and no additional complaints, except as docu and Reports as per HPI Neurologic: Reports system reviewed and no additional complaints, except as documented and Reports as per HPI Psychiatric: Psychiatric: Reports no additional psychiatric complaints and Reports as per HPI Endocrine: Endocrine: Reports no additional endocrine complaints and Reports as per HPI Hematologic/Lymphatic: Hematologic/Lymphatic: Reports no additional hematologic/lymphatic complaints and Reports as per HPI Allergic/Immunologic: Allergic/Immunologic: Reports no additional allergic/immunologic complaints and Reports as per HPI PMFSH Past Medical History Medical History Anxiety, generalized Contact dermatitis Folliculitis Social History Social History Smoking status: Current every day smoker Gender identity (if verbalized by the patient): Female Exam Const: General: ill appearing Nutritional Appearance: thin Orientation/consciousness: patient oriented x3 Limitations: no limitations HENMT: Head: normal to inspection Ears: external ears normal General nose exam: Normal external nose present Face and sinus: normal facial exam Mouth: Yes Normal oral and palatal mucosa present Teeth and gingiva: dentition normal ( multiple teeth are missing. Extensive caries.pain 29,31) Throat: posterior oropharynx normal Eyes: Conjunctivae: conjunctivae normal Pupils: Equal, round and reactive pupils present EOM: EOMs intact bilaterally Direct Ophthalmoscopy: no photophobia Neck: Neck: normal visual inspection, no lymphadenopathy and no meningeal signs Chest: Chest palpation & inspection: normal inspection of the chest Resp: Effort & Inspection: normal respiratory effort Auscultation:
[2021-10-27 02:35] VITALS: BP 110/58; PULSE 68; RESP 20; TEMP 36.8; O2SAT 96
[2021-10-27] MEDS: HYDROcodone/acetaminophen (*CRX) 5-325 MG TABLET 1 TAB PO (03:12)
[2021-10-27] MEDS: CLINDAMYCIN HCL 150 MG CAP 300 MG PO (03:12)
[2021-10-27 03:16] VITALS: BP 111/80; PULSE 70; RESP 18; TEMP 36.1; O2SAT 98
== END 2021-10-27 03:18 | disposition home or self-care (01) ==
PROVIDERS: Emergency Provider Internal Medicine Critical Care Medicine
DX: K02.9 Dental caries, unspecified (principal); K08.89 Other specified disorders of teeth and supporting structures; B85.0 Pediculosis due to Pediculus humanus capitis
CPT/HCPCS: 99283; A9270

== ENCOUNTER 2021-11-16 06:41 | Emergency (ER) | payer OTHER, SELFPAY ==
[2021-11-16 06:50] VITALS: BP 124/87; PULSE 78; RESP 18; TEMP 36.4; O2SAT 100
--- NOTE | 2021-11-16 07:05 | PC.NURSE ---
Report given to Dot SCOTT, no questions
--- NOTE | 2021-11-16 07:24 | ED.SKABFB ---
HPI - Skin/Abscess/Foreign Bdy General Chief complaint: Skin/Abscess/Foreign Body Stated complaint: ambulance Source: patient Mode of arrival: ambulatory Limitations: no limitations History of Present Illness HPI narrative: this is a 41-year-old female she out of bed and hit her whole wound on the side of night stand with a piece of glass and has a small avulsion to the left upper scalp area currently not bleeding with no loss of consciousness no headache no nausea vomiting. Onset (ago): hour(s) Tetanus up to date: yes Location: head Severity: mild Severity scale (1-10): 2 Related Data Home Medications Medication Instructions Recorded Confirmed No Home Medications 11/16/21 11/16/21 Allergies Allergy/AdvReac Type Severity Reaction Status Date / Time azithromycin Allergy Unknown Rash Verified 04/26/21 04:14 nortriptyline Allergy Unknown Unknown Verified 04/26/21 04:14 sulindac Allergy Unknown Unknown Verified 04/26/21 04:14 Review of Systems Review of Systems: All systems reviewed & are unremarkable except as noted in HPI and below PMFSH Past Medical History Medical History Anxiety, generalized Contact dermatitis Folliculitis Social History Social History Smoking status: Current every day smoker Gender identity (if verbalized by the patient): Female Exam Const: General: healthy appearing HENMT: Head: normal to inspection Face and sinus: normal facial exam Eyes: Conjunctivae: conjunctivae normal EOM: EOMs intact bilaterally Direct Ophthalmoscopy: no photophobia Neck: Neck: normal visual inspection Chest: Chest palpation & inspection: normal inspection of the chest Resp: Effort & Inspection: normal respiratory effort Cardio: Rate: regular rate Rhythm: regular rhythm GI: Auscultation: normal bowel sounds Back/Spine/Pelvis: Back: no CVA tenderness Skin: General skin exam: normal color Wounds: wounds noted Neuro: General: patient oriented x3 Cranial nerves: Yes Nystagmus not present Speech: normal speech Gait exam (Neuro): Normal gait present Extrem: General: normal to inspection Psych: Mental Status: mental status grossly normal Affect: normal affect Course Course Emergency Course: Advised to use Neosporin daily x3 days and to follow-up her primary care physician or return to the emergency department if symptoms of of severe headache should occur. Vital Signs Vital signs: Vital Signs Temperature 36.4 C 11/16/21 06:50 Pulse Rate 78 11/16/21 06:50 Respiratory Rate 18 11/16/21 06:50 Blood Pressure 124/87 11/16/21 06:50 Pulse Oximetry 100 11/16/21 06:50 Oxygen Delivery Room Air 11/16/21 06:50 Temperature 36.4 C 11/16/21 06:50 Pulse Rate 78 11/16/21 06:50 Respiratory Rate 18 11/16/21 06:50 Blood Pressure 124/87 11/16/21 06:50 Pulse Oximetry 100 11/16/21 06:50 Oxygen Delivery Room Air 11/16/21 06:50 Critical Care Time Critical Care Time Critical Care Time: No Discharge Plan Discharge Clinical Impression: Avulsion of skin Patient Disposition: Home, Self-Care Condition: Stable Instructions: Antibiotic Form, Skin Avulsion (ED) Additional Instructions: can take Tylenol or Motrin for pain and follow-up primary care physician if symptoms persist or worsen. Prescriptions: No Action No Home Medications Follow-up/Referrals: UNKNOWN,DOCTOR [Primary Care Provider] - Time of Disposition: 07:28
[2021-11-16 07:40] VITALS: BP 126/83; PULSE 81; RESP 18; O2SAT 98
== END 2021-11-16 07:48 | disposition home or self-care (01) ==
LOC: CHSED 07:38
PROVIDERS: Emergency Provider Emergency Medicine
DX: S01.80XA Unspecified open wound of other part of head, initial encounter (principal); W06.XXXA Fall from bed, initial encounter
CPT/HCPCS: 99282

== ENCOUNTER 2023-02-15 15:44 | Emergency (ER) | payer OTHER, SELFPAY ==
[2023-02-15 15:52] VITALS: BP 117/68; PULSE 91; RESP 18; TEMP 36.8; O2SAT 98
--- NOTE | 2023-02-15 16:52 | ED.GENADULT ---
HPI - General Adult General Chief complaint: Skin/Abscess/Foreign Body Stated complaint: skin sores Time Seen by Provider: 02/15/23 16:16 History of Present Illness HPI narrative: 42-year-old female presented to the emergency department for evaluation of facial abscesses. Patient does have history of MRSA. Patient states these started just a few days ago the patient does admit to squeezing them in order to pop them. Related Data Allergies Allergy/AdvReac Type Severity Reaction Status Date / Time azithromycin Allergy Unknown Rash Verified 02/15/23 15:56 nortriptyline Allergy Unknown Unknown Verified 02/15/23 15:56 sulindac Allergy Unknown Unknown Verified 02/15/23 15:56 Review of Systems Review of Systems: All systems reviewed & are unremarkable except as noted in HPI and below PMFSH Past Medical History Medical History Anxiety, generalized Contact dermatitis Folliculitis Social History Social History Smoking status: Current every day smoker Gender identity (if verbalized by the patient): Female Exam Narrative: APPEARANCE: Well appearing, no pain, no distress, well-nourished. HEAD: normocephalic, atraumatic. EYES: PERRLA/EOMI, conjunctivae clear. NOSE: Normal no drainage EARS:TMS clear with good light reflex. THROAT: Pharynx clear, no exudate. NECK: Supple. No adenopathy, no masses. RESPIRATORY: Airway patent, respirations nonlabored. Clear to auscultation bilaterally, no rales, rhonchi, wheezing. CARDIOVASCULAR: Regular rate and rhythm without murmurs rubs or gallops. ABDOMINAL: Soft, nontender, nondistended, normal bowel sounds MUSCULOSKELETAL: Moves all extremities. Strength/ROM intact, No edema, No calf tenderness. NEURO: Alert. Cranial nerves II through XII intact. Good gait. Good coordination SKIN: small early abscesses bilateral upper lip PSYCHIATRIC: Normal affect/mood. Course Course Emergency Course: 42-year-old female presents emergency department for evaluation of facial abscess. Patient was started on Bactrim in the emergency department discharged home on Bactrim. Patient was advised on wound care. Vital Signs Vital signs: Vital Signs Temperature 98.2 F 02/15/23 15:52 Pulse Rate 91 02/15/23 15:52 Respiratory Rate 18 02/15/23 15:52 Blood Pressure 117/68 02/15/23 15:52 Pulse Oximetry 98 02/15/23 15:52 Oxygen Delivery Room Air 02/15/23 15:52 Temperature 98.2 F 02/15/23 15:52 Pulse Rate 91 02/15/23 15:52 Respiratory Rate 18 02/15/23 15:52 Blood Pressure 117/68 02/15/23 15:52 Pulse Oximetry 98 02/15/23 15:52 Oxygen Delivery Room Air 02/15/23 15:52 Medical Decision Making Vital Signs Vital Signs: Vital Signs Temperature 98.2 F 02/15/23 15:52 Pulse Rate 91 02/15/23 15:52 Respiratory Rate 18 02/15/23 15:52 Blood Pressure 117/68 02/15/23 15:52 Pulse Oximetry 98 02/15/23 15:52 Oxygen Delivery Room Air 02/15/23 15:52 Temperature 98.2 F 02/15/23 15:52 Pulse Rate 91 02/15/23 15:52 Respiratory Rate 18 02/15/23 15:52 Blood Pressure 117/68 02/15/23 15:52 Pulse Oximetry 98 02/15/23 15:52 Oxygen Delivery Room Air 02/15/23 15:52 Discharge Plan Discharge Clinical Impression: Abscess of face Patient Disposition: Home, Self-Care Condition: Stable Instructions: Antibiotic Form, Abscess (ED) Additional Instructions: Warm compresses as directed. Antibiotics as directed until completed. Have close follow-up with your primary care physician. Prescriptions: New sulfamethoxazole-trimethoprim [Bactrim DS] 800-160 mg tablet 1 tablet PO Q12H 7 Days Qty: 14 0RF Follow-up/Referrals: PHYSICIAN,ENVIRONMENTAL MANAGER [Primary Care Provider] -
[2023-02-15] MEDS: SULFAMETHOXAZOLE/TRIMETHOPRIM 800/160 MG DS TABLET 1 TAB PO (17:00)
== END 2023-02-15 17:18 | disposition home or self-care (01) ==
PROVIDERS: Emergency Provider Emergency Medicine
DX: L02.01 Cutaneous abscess of face (principal); F17.200 Nicotine dependence, unspecified, uncomplicated; Z86.14 Personal history of Methicillin resistant Staphylococcus aureus infection
CPT/HCPCS: 99283; A9270

== ENCOUNTER 2023-08-01 01:20 | Emergency (ER) | payer OTHER, SELFPAY ==
[2023-08-01 01:24] VITALS: BP 104/70; PULSE 72; RESP 15; TEMP 37; O2SAT 98
--- NOTE | 2023-08-01 01:38 | ED.URI ---
HPI - URI/Sore Throat General Chief Complaint: Upper Respiratory Infection Stated Complaint: sore throat Time Seen by Provider: 08/01/23 01:25 Source: patient Mode of arrival: ambulatory Limitations: no limitations History of Present Illness HPI Narrative: Patient is a 42 y/o female who presents to the ED with c/o sore throat. Patient reports having a persistent sore throat since last night. Complains of headache, bilateral ear pain. States it feels similar to when she has had strep throat in the past. Denies known sick contacts. Denies fevers. Denies cough, difficulty breathing, difficulty swallowing. Denies nausea, vomiting. Related Data Allergies Allergy/AdvReac Type Severity Reaction Status Date / Time azithromycin Allergy Unknown Rash Verified 02/15/23 15:56 nortriptyline Allergy Unknown Unknown Verified 02/15/23 15:56 sulindac Allergy Unknown Unknown Verified 02/15/23 15:56 Review of Systems Review of Systems: CONSTITUTIONAL: Denies fever, chills, or sweats. ENT: See HPI. RESPIRATORY: Denies cough or dyspnea. GASTROINTESTINAL: Denies nausea, vomiting. NEUROLOGICAL: Reports DOTY. All systems reviewed & are unremarkable except as noted in HPI and below PMFSH Past Medical History Medical History Anxiety, generalized Contact dermatitis Folliculitis Social History Social History Smoking status: Current every day smoker Gender identity (if verbalized by the patient): Female Exam Narrative: GENERAL: Well appearing, thin, non-toxic, in no acute distress. HEAD: Normocephalic, atraumatic. ENT: Pierced tongue. Poor dentition with scattered dental caries. Posterior pharynx is moderately erythematous, tonsils are mildly enlarged, worse on right, no protrusion tonsillar bed. No exudate present. No uvular deviation. No stridor or trismus. Right TM very mildly erythematous. Left TM appears erythematous and bulging. No drainage. RESPIRATORY: Airway patent, respirations nonlabored. CARDIOVASCULAR: Regular rate and rhythm. MUSCULOSKELETAL: Moves all extremities. No gross deformities. SKIN: Warm, dry, normal color. NEURO: A&O X3. Speech clear. PSYCHIATRIC: Appropriate mood and affect. Normal interaction. Course Vital Signs Vital signs: Vital Signs Temperature 98.6 F 08/01/23 01:24 Pulse Rate 72 08/01/23 01:24 Respiratory Rate 15 08/01/23 01:24 Blood Pressure 104/70 08/01/23 01:24 Pulse Oximetry 98 08/01/23 01:24 Oxygen Delivery Room Air 08/01/23 01:24 Temperature 98.6 F 08/01/23 01:24 Pulse Rate 72 08/01/23 01:24 Respiratory Rate 15 08/01/23 01:24 Blood Pressure 104/70 08/01/23 01:24 Pulse Oximetry 98 08/01/23 01:24 Oxygen Delivery Room Air 08/01/23 01:24 MDM - URI/Sore Throat MDM Narrative Medical decision making narrative: No concerning findings for WILL CALL CLERK on exam. No airway compromise. No stridor or trismus. Tolerating secretions. Exam does reveal left otitis media. Strep testing positive. Patient started on amoxicillin. Will discharge. Given return precautions. Discharged in stable condition. Medical Records Attestation: I reviewed the patient's medical records. Lab Data Attestation: I reviewed the patient's lab results. Labs: Lab Results 08/01/23 Range/Units 01:32 Influenza A (RT-PCR) Negative (Negative) Influenza B (RT-PCR) Negative (Negative) RSV (RT-PCR) Negative (Negative) SARS-CoV-2 RNA (RT-PCR) Negative (Negative) Group A Strep (PCR) Detected A (Negative) Discharge Plan Discharge Clinical Impression: Strep pharyngitis, Acute left otitis media Patient Disposition: Home, Self-Care Condition: Stable Instructions: Antibiotic Form, Strep Throat (ED), Ear Infection (ED) Additional Instructions: Take antibiotics as prescribed. Continue Tylenol and ibuprofen as need
[2023-08-01] MEDS: IBUPROFEN 600 MG TABLET PO (02:11)
[2023-08-01] MEDS: ACETAMINOPHEN 500 MG TABLET 1000 MG PO (02:12)
[2023-08-01 02:21] LABS: Strep Group A RT-PCR DETECTED (Negative)
[2023-08-01] MEDS: AMOXICILLIN 500 MG CAPSULE PO (02:36)
[2023-08-01 02:37] LABS: Influenza A QL RT-PCR Negative (Negative); Influenza B QL RT-PCR Negative (Negative); RSV RNA, RT-PCR Negative (Negative); SARS-CoV-2 RNA PCR Negative (Negative)
[2023-08-01] MEDS: dexAMETHasone SOD PHOS INJ 10 MG/ML 1 ML VIAL IM (02:37)
[2023-08-01 02:49] VITALS: BP 108/54; PULSE 70; RESP 15; O2SAT 100
== END 2023-08-01 02:50 | disposition home or self-care (01) ==
PROVIDERS: Emergency Provider Physician Assistant
DX: J02.0 Streptococcal pharyngitis (principal); H66.92 Otitis media, unspecified, left ear; F17.200 Nicotine dependence, unspecified, uncomplicated; Z20.822 Contact with and (suspected) exposure to COVID-19
CPT/HCPCS: 87637; 87651; 96372; 99283; A9270; J1100

== ENCOUNTER 2023-12-31 14:19 | Emergency (ER) | payer OTHER, SELFPAY ==
[2023-12-31 14:22] VITALS: BP 117/62; PULSE 86; RESP 15; TEMP 36.6; O2SAT 100
--- NOTE | 2023-12-31 15:29 | PC.NURSE ---
patient states her cyst started as a pimple a few days ago and she was picking at it and when she woke this morning it was swollen and red.
--- NOTE | 2023-12-31 17:01 | ED.SKABFB ---
HPI - Skin/Abscess/Foreign Bdy General Chief complaint: Skin/Abscess/Foreign Body Stated complaint: cyst between eyebrows Time Seen by Provider: 12/31/23 16:15 History of Present Illness HPI narrative: 43-year-old female presenting with facial swelling. States that she has had a red bump in between her eyes for the last several days. States that it has been draining some yellowish discharge. States that today she woke up with swelling into her forehead and around her eyes. She denies any pain. No vision changes. No headache or fevers. No pain with extraocular eye movements. No neck pain. No further complaints. Related Data Allergies Allergy/AdvReac Type Severity Reaction Status Date / Time azithromycin Allergy Unknown Rash Verified 12/31/23 14:20 nortriptyline Allergy Unknown Unknown Verified 12/31/23 14:20 sulindac Allergy Unknown Unknown Verified 12/31/23 14:20 Review of Systems Review of Systems: All systems reviewed & are unremarkable except as noted in HPI and below PMFSH Past Medical History Medical History Anxiety, generalized Contact dermatitis Folliculitis Social History Social History Smoking status: Current every day smoker Gender identity (if verbalized by the patient): Female Exam Narrative: GENERAL: Nontoxic, no acute distress HEAD: Normocephalic, atraumatic. EYES: PERRLA and EOMI. mild bilateral periorbital edema, no tenderness, no pain with EOMI ENT: Grossly unremarkable NECK: Supple. CHEST: Clear to auscultation. No respiratory distress. HEART: Regular rate and rhythm EXTREMITIES: Normal range of motion SKIN: Warm, dry, +pimple in between eyebrows with surround swelling, no fluctuance or abscess appreciated; minimal erythema; no crepitus NEURO: No focal deficits. Alert and oriented x3. PSYCH: Normal mood and affect. Course Vital Signs Vital signs: Vital Signs Temperature 98 F 12/31/23 14:22 Pulse Rate 86 12/31/23 14:22 Respiratory Rate 15 12/31/23 14:22 Blood Pressure 117/62 12/31/23 14:22 Pulse Oximetry 100 12/31/23 14:22 Oxygen Delivery Room Air 12/31/23 14:22 Temperature 98 F 12/31/23 14:22 Pulse Rate 86 12/31/23 14:22 Respiratory Rate 15 12/31/23 14:22 Blood Pressure 117/62 12/31/23 14:22 Pulse Oximetry 100 12/31/23 14:22 Oxygen Delivery Room Air 12/31/23 14:22 MDM - Skin/Abscess/Foreign Bdy MDM Narrative Medical decision making narrative: [age]old female presenting with facial swelling. Vitals within normal limits. Exam remarkable for the above. Consistent with folliculitis. I do not appreciate any fluctuance concerning for a drainable abscess but it's certainly possible this represents an early abscess. She has bilateral periorbital edema that I think is likely related to the localized infection. There is no evidence of orbital or even periorbital cellulitis. 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 Discussed appropriate supportive care with warm compresses. Strict return precautions given. Recommend close PCP follow-up. She is agreeable with this plan. Discharged in stable condition. Differential Diagnosis Differential diagnosis: Likely abscess of skin or subcutaneous tissue, cellulitis, insect bites and other (Folliculitis) Medical Records Attestation: I reviewed the patient's medical records. Lab Data Attestation: I reviewed the patient's lab results. Critical Care Time Critical Care Time Critical Care Time: No Discharge Plan Discharge Clinical Impression: Folliculitis, Abscess of skin or subcutaneous tissue Patient Disposition: Home, Self-Care Condition: Stable Instructions: Antibiotic Form, Folliculitis (ED) Additional Instructions: We are treating you for a skin infection with 2 different antibiotics. Please t
[2023-12-31] MEDS: CEPHALEXIN 500 MG CAPSULE PO (17:12)
[2023-12-31] MEDS: DOXYCYCLINE HYCLATE 100 MG TABLET PO (17:12)
[2023-12-31 17:22] VITALS: BP 120/76; PULSE 82; RESP 16; TEMP 36.6; O2SAT 97
== END 2023-12-31 17:24 | disposition home or self-care (01) ==
PROVIDERS: Emergency Provider Emergency Medicine
DX: L73.9 Follicular disorder, unspecified (principal); F41.9 Anxiety disorder, unspecified
CPT/HCPCS: 99283; A9270

== ENCOUNTER 2024-05-01 16:33 | Emergency (ER) | payer OTHER, SELFPAY ==
--- OUTSIDE RECORDS SUMMARY | 2024-05-01 16:35 | XMS_ITS | Clinical Summary ---
Author Organization [facility] Address [address] [place] [id number] Care Team Providers Care Colon Therapist Name Role Phone No, Physician Primary Care Provider [phone] Allergies Active Allergy Reactions Criticality Noted Date Comments Azithromycin Rash Medium 07/15/2022 Medications HYDROcodone-acet aminophen (NORCO) 5-325 mg per tabletIndication s:Pain Take 1 tablet by mouth every 6 (six) hours as needed for pain 10 tablet 08/03/2022 Active Encounters Date Type Department Care Team Description 03/10/2024 4:21 PM FOREMAN OR SUPERVISOR AND OPERATOR - 03/10/2024 4:47 PM [facility] Emergency [address] [address] Furuncle of nose (Primary Dx) Discharge Disposition: Discharge to home or self care from Last 3 Months Medical History Medical History Date Comments Anxiety Depression Bipolar affective (HCC) Social History Tobacco Use Types Packs/Day Years Used Date Smoking Tobacco: Some Days Cigarettes Tobacco Cessation:Ready to Q uit: Not Asked; Counseling Given: Not Answered Alcohol Use Standard Drinks/Week Comments Not Currently 0 (1 standard drink = 0.6 oz pur e alcohol) Personal Safety Answer Date Recorded Have you ever been in or are you currently in a harmful physical or emotional relationship or is someone making you feel afraid or unsafe? Denies 03/10/2024 Comments No Sex and Gender Information Value Date Recorded Sex Assigned at Not on file Legal Sex Female 3:50 AM FOREMAN OR SUPERVISOR AND OPERATOR Gender Identity Not on file Sexual Orientation Not on file Obstetrics History Last Filed Vital Signs Vital Sign Reading Time Taken Comments Blood Pressure 129/66 03/10/2024 2:46 PM FOREMAN OR SUPERVISOR AND OPERATOR Pulse 85 03/10/2024 2:46 PM FOREMAN OR SUPERVISOR AND OPERATOR Temperature 36.6 C (97.9 F) 03/10/2024 2:46 PM FOREMAN OR SUPERVISOR AND OPERATOR Respiratory Rate 16 03/10/2024 2:46 PM FOREMAN OR SUPERVISOR AND OPERATOR Oxygen Saturation 100% 03/10/2024 2:46 PM FOREMAN OR SUPERVISOR AND OPERATOR Inhaled Oxygen Concentration - - Weight 54.4 kg (120 lb) 03/10/2024 3:26 PM FOREMAN OR SUPERVISOR AND OPERATOR Height 170.2 cm (5' 7 ) 08/03/2022 6:54 PM CDT Body Mass Index 18.79 08/03/2022 6:54 PM CDT Plan of Treatment Health Maintenance Due Date Last Done Comments Breast Cancer Screening-Mammogram 1981 Cervical Cancer Screening 1981 Depression Screening 1981 Pneumococcal vaccine <65 (1 of 2 - PCV) 08/17/1987 DTaP/Tdap/Td Vaccine (1 - Tdap) 1992 Varicella Vaccines (1 of 2 - 13+ 2-dose series) 1994 Hepatitis B Screening 08/17/1999 Regular Well Visit/Exam 18-64 08/17/1999 Influenza Vaccine (#1) 2023 7, 12/08/2010 Hepatitis C Screening Completed 08/05/2018 HPV Vaccines Aged Out No longer eligi ble based on patient's age to complete this topic Procedures Procedure Name Priority Date/Time Associated Diagnosis Comments ED INCISION AND DRAINAGE Routine 03/10/2024 4:35 PM FOREMAN OR SUPERVISOR AND OPERATOR HEPATITIS C ANTIBODY Routine 08/05/2018 9:53 AM CDT from Last 3 Months or Most Recently Relevant to Health Maintenance Results * Incision and Drainage (03/10/2024 4:35 PM FOREMAN OR SUPERVISOR AND OPERATOR) Narrative Christina Prince PA - 03/10/2024 4:35 PM FOREMAN OR SUPERVISOR AND OPERATOR Christina Prince PA 03/10/2024 4:36 PM Incision and Drainage Date/Time: 03/10/2024 4:35 PM Performed by: Christina Prince PA Authorized by: Jose Manuel Cortes MD RN Notified of Procedure: yes Informed consent: Risks, benefits, alternatives discussed Type: Abscess Location: Head Head location: Nose Skin preparation: Hibiclens Anesthesia method: None Incision types: Stab incision Incision depth: Dermal Drainage: Purulent Drainage amount: Scant Wound treatment: Wound left open Packing materials: None Patient tolerance of procedure: Tolerated well, no immediate complications us Jose Manuel Cortes MD IN CLINIC/BEDSIDE O RDERABLES Final Result * Hepatitis C antibody (08/05/2018 9:53 AM CDT) Hep C Ab NONREACT NONREACTIVE [facility] Comment: Siemens CentaurXP using GAVIN (chemiluminescent immunoassay) technology. NONREACTIVE: Antibodies to Hepatitis C not detected. This does not exclude early acute Hepatitis C infection, possibility of exposure to Hepatitis C, antibodies below detection limit, or to lack of antibody reactivity to the antigen used in this assay. EQUIVOCAL: Antibodies to Hepatitis C may or may not be present. Sample to be confirmed by real-time PCR method. REACTIVE: Antibodies to Hepatitis C detected.Sample to be confirmed by real-time PCR method. 08/05/2018 9:53 AM CDT 08/05/2018 9:57 AM CDT Narrative Resulting Agency Comment IN us Álvaro Lara MD LAB MICROBIOLOGY - GENERAL O RDERABLES Final Result [facility] [address] [phone] from Last 3 Months or Most Recently Relevant to Health Maintenance Insurance [employer] [facility] Care Teams Colon Therapist Relationship Specialty Start Date End Date No, Physician PCP - General 06/23/18
--- OUTSIDE RECORDS SUMMARY | 2024-05-01 16:35 | XMS_ITS | Continuity of Care Document ---
Author Organization [facility] Address [address] [place] [address] Phone Care Team Providers Care Spline Rolling Machine Job Setter Name Role Phone Ramses ARANGO, R Unavailable Unavailable Advance Directives Directive Yes / No Effective Date File Name No Information Encounters Encounter Description Practice Location Reason(s) For Visit Diagnoses Date Provider Providers Copied on Encounter [facility] [employer] [facility], [address] [address] [facility], [place], [place], [id number], [place] tel:[phone] [facility] No Information 0 2 Ramses Ackerman [address] [facility], [address], [place], [place], [id number] , [place]. tel:[phone] Family History Family Member Type Diagnosis Age At Onset No Information Payers Payer name Insurance type Covered democrat ID Authoriza tion(s) No Information Social History Type Description Quantity Date Captured Comments Sex Female Smoking Status No Information Chief Complaint And Reason For Visit No Information Reason For Referral Reason For Referral No Information History Of Present Illness Encounter Date Complaint History Of Prese nt Illness No Information Functional Status Date Functional Assessmen t No Information Instructions Date Instruction Additional Infor mation No Information Assessments Type Assessment Date No Information Patient Care Teams Name Effective Dates (start - stop) Status Members No Information
--- OUTSIDE RECORDS SUMMARY | 2024-05-01 16:35 | XMS_ITS | Referral Summary ---
Author Organization [facility] Address [address] [place] [id number] Care Team Providers Care Sleep Technician Name Role Phone No, Physician Primary Care Provider [phone] Encounters Date Type Department Care Team Description 03/10/2024 4:21 PM PROPOSAL REP - 03/10/2024 4:47 PM [facility] Emergency [address] [address] Furuncle of nose (Primary Dx) Discharge Disposition: Discharge to home or self care from Last 3 Months Allergies Active Allergy Reactions Criticality Noted Date Comments Azithromycin Rash Medium 07/15/2022 Medications HYDROcodone-acet aminophen (NORCO) 5-325 mg per tabletIndication s:Pain Take 1 tablet by mouth every 6 (six) hours as needed for pain 10 tablet 08/03/2022 Active Social History Tobacco Use Types Packs/Day Years [...] on file Legal Sex Female 3:50 AM PROPOSAL REP Gender Identity Not on file Sexual Orientation Not on file Last Filed Vital Signs Vital Sign Reading Time Taken Comments Blood Pressure 129/66 03/10/2024 2:46 PM PROPOSAL REP Pulse 85 03/10/2024 2:46 PM PROPOSAL REP Temperature 36.6 C (97.9 F) 03/10/2024 2:46 PM PROPOSAL REP Respiratory Rate 16 03/10/2024 2:46 PM PROPOSAL REP Oxygen Saturation 100% 03/10/2024 2:46 PM PROPOSAL REP Inhaled Oxygen Concentration - - Weight 54.4 kg (120 lb) 03/10/2024 3:26 PM PROPOSAL REP Height 170.2 cm (5' 7 ) 08/03/2022 6:54 PM CDT Body Mass Index 18.79 08/03/2022 6:54 PM CDT Plan of Treatment Not on file Procedures Procedure Name Priority Date/Time Associated Diagnosis Comments ED INCISION AND DRAINAGE Routine 03/10/2024 4:35 PM PROPOSAL REP HEPATITIS C ANTIBODY Routine 08/05/2018 9:53 AM CDT from Last 3 Months or Most Recently Relevant to Health Maintenance Results * Incision and Drainage (03/10/2024 4:35 PM PROPOSAL REP) Narrative Christina Prince PA - 03/10/2024 4:35 PM PROPOSAL REP Christina Prince PA 03/10/2024 4:36 PM Incision [...] AM CDT) Hep C Ab NONREACT NONREACTIVE [facility] Comment: Siemens CentaurX using GAVIN (chemiluminescent immunoassay) technology. NONREACTIVE: Antibodies [...] MICROBIOLOGY - GENERAL O RDERABLES Final Result [place] [id number] [place], [place] [id number] [place] [address] from Last 3 Months or Most Recently Relevant to Health Maintenance Insurance Care Teams Sleep Technician Relationship Specialty Start Date End Date No, Physician PCP - General 06/23/18
[2024-05-01 16:41] VITALS: BP 114/91; PULSE 79; RESP 20; TEMP 36.2; O2SAT 100
[2024-05-01 16:46] VITALS: BP 114/91; PULSE 79; RESP 20; TEMP 36.2; O2SAT 100
--- NOTE | 2024-05-01 16:46 | ED_ITS ---
HPI - General Adult General Chief complaint: Skin/Abscess/Foreign Body Stated complaint: lice Time Seen by Provider: 05/01/24 16:46 History of Present Illness HPI narrative: PATIENT REPORT ITCHING SCALP FOR OVER 1 YEAR, SUSPECTED LICE INFESTATION. SHE DENIES OTHER SYMPTOMS. HISTORY OF BIPOLAR PATIENT HAVE A PICTURES ON HER PHONE SHOWING WHITE STUFF ON HER HAIR LOOKS LIKE DOWN DR. OR LICE EGGS, NITS Related Data Allergies Allergy/AdvReac Type Severity Reaction Status Date / Time azithromycin Allergy Unknown Rash Verified 12/31/23 14:20 nortriptyline Allergy Unknown Unknown Verified 12/31/23 14:20 sulindac Allergy Unknown Unknown Verified 12/31/23 14:20 Review of Systems Review of Systems: All systems reviewed & are unremarkable except as noted in HPI and below PMFSH Past Medical History Medical History Folliculitis Contact dermatitis Anxiety, generalized Social History Social History Smoking status: Current every day smoker Gender identity (if verbalized by the patient): Female Exam Narrative: GENERAL APPEARANCE: WELL-DEVELOPED, WELL-NOURISHED SKIN: NORMAL COLOR HEAD: NORMOCEPHALIC, NONTRAUMATIC EYES: CLEAR CONJUNCTIVA ENT: OROPHARYNX NORMAL, EARS NORMAL, NOSE NORMAL NECK: SUPPLE, NONTENDER NEUROLOGIC: ALERT AND ORIENTED ?3, FABRICATION DEPARTMENT SUPERVISOR IS NORMAL TESTED, NO GROSS MOTOR DEFICIT Course Vital Signs Vital signs: Vital Signs Temperature 36.2 C L 05/01/24 16:41 Pulse Rate 79 05/01/24 16:41 Respiratory Rate 20 05/01/24 16:41 Blood Pressure 114/91 H 05/01/24 16:41 Pulse Oximetry 100 05/01/24 16:41 Oxygen Delivery Room Air 05/01/24 16:41 Temperature 36.2 C L 05/01/24 16:41 Pulse Rate 79 05/01/24 16:41 Respiratory Rate 20 05/01/24 16:41 Blood Pressure 114/91 H 05/01/24 16:41 Pulse Oximetry 100 05/01/24 16:41 Oxygen Delivery Room Air 05/01/24 16:41 Medical Decision Making Vital Signs Vital Signs: Vital Signs Temperature 36.2 C L 05/01/24 16:41 Pulse Rate 79 05/01/24 16:41 Respiratory Rate 20 05/01/24 16:41 Blood Pressure 114/91 H 05/01/24 16:41 Pulse Oximetry 100 05/01/24 16:41 Oxygen Delivery Room Air 05/01/24 16:41 Temperature 36.2 C L 05/01/24 16:41 Pulse Rate 79 05/01/24 16:41 Respiratory Rate 20 05/01/24 16:41 Blood Pressure 114/91 H 05/01/24 16:41 Pulse Oximetry 100 05/01/24 16:41 Oxygen Delivery Room Air 05/01/24 16:41 Critical Care Time Critical Care Time Critical Care Time: No Discharge Plan Discharge Clinical Impression: Head lice, Dry scalp Patient Disposition: Home, Self-Care Condition: Stable Instructions: Pediculosis (ED) Additional Instructions: RETURN IF SYMPTOMS ARE WORSENING , CALL YOUR FAMILY PHYSICIAN FOR APPOINTMENT, GET [id number] SELSUN BLUE SHAMPO AND PERMETHRIN 1% CREAM/LOTION APPLY TO WASHED HAIR, LEAVE ON 10 MINUTES, RINSE AND COMB OUT NITS AND EGGS Patient Language: Belarusian Prescriptions: No Action sulfamethoxazole-trimethoprim [Bactrim DS] 800-160 mg tablet 1 tablet PO Q12H 7 Days Qty: 14 0RF amoxicillin 500 mg capsule 500 mg PO Q12H 10 Days Qty: 20 0RF cephalexin 500 mg capsule 500 mg PO Q6H 7 Days Qty: 28 0RF doxycycline hyclate 100 mg tablet 100 mg PO BID Qty: 14 0RF Follow-up/Referrals: UNKNOWN,DOCTOR [Primary Care Provider] -
--- OUTSIDE RECORDS SUMMARY | 2024-05-01 16:52 | XMS_ITS | Continuity of Care Document ---
Author Organization [facility] Address [address] [place] [address] Phone Care Team Providers Care Self Pay Specialist Name Role Phone Ramses ARANGO, R Unavailable Unavailable Advance Directives Directive Yes / No Effective Date File Name No Information Encounters Encounter Description Practice Location Reason(s) For Visit Diagnoses Date Provider Providers Copied on Encounter [facility], [address] [facility], [place], [place], [id number], [place] tel:[phone] [facility] No Information 0 2 Ramses Ackerman [address] [facility], [address], [place], [place], [id number] , [place]. tel:[phone] Family History Family Member Type Diagnosis Age At Onset No Information Payers Payer name Insurance type Covered green party ID Authoriza tion(s) No Information Social History [...]
== END 2024-05-01 16:55 | disposition home or self-care (01) ==
LOC: CHSED 16:50
PROVIDERS: Emergency Provider Emergency Medicine
DX: B85.0 Pediculosis due to Pediculus humanus capitis (principal); F17.200 Nicotine dependence, unspecified, uncomplicated
CPT/HCPCS: 99281

== ENCOUNTER 2024-05-18 14:46 | Emergency (ER) | payer OTHER, SELFPAY ==
[2024-05-18 14:49] VITALS: BP 120/86; PULSE 89; RESP 18; TEMP 36.5; O2SAT 98
--- NOTE | 2024-05-18 15:03 | ED_ITS ---
HPI - Skin/Abscess/Foreign Bdy General Chief complaint: Skin/Abscess/Foreign Body Stated complaint: oral infection Time Seen by Provider: 05/18/24 14:48 Source: patient Mode of arrival: ambulatory Limitations: no limitations History of Present Illness HPI narrative: patient is a 43-year-old female with the bilateral upper lip skin infection. She was picking at the skin and further got irritation and inflamed tissue. She does not get this regularly. complaint: rash Onset (ago): day(s) ( Five) Tetanus up to date: unsure Location: face ( upper lip bilaterally) Severity: moderate Severity scale (1-10): 3 Quality: burning Pain Consistency: constant Relieving factors: none Exacerbating factors: palpation Context: other ( patient has bilateral upper lip redness and irritation from skin infection) Associated symptoms: denies other symptoms Treatments prior to arrival: none Related Data Allergies Allergy/AdvReac Type Severity Reaction Status Date / Time azithromycin Allergy Unknown Rash Verified 05/18/24 15:15 nortriptyline Allergy Unknown Unknown Verified 05/18/24 15:15 sulindac Allergy Unknown Unknown Verified 05/18/24 15:15 Review of Systems Review of Systems: All systems reviewed & are unremarkable except as noted in HPI and below Constitutional: Constitutional: Reports no additional constitutional complaints Eyes: Eyes: Reports no additional eye complaints ENT: Reports system reviewed and no additional complaints, except as documented Cardiovascular: Cardiovascular: Reports no additional cardiovascular complaints Respiratory: Respiratory: Reports no additional respiratory complaints Gastrointestinal: Gastrointestinal: Reports no additional gastrointestinal complaints Genitourinary: Genitourinary: Reports no additional female genitourinary complaints Musculoskeletal: Musculoskeletal: Reports no additional musculoskeletal complaints Integumentary/Breasts: Skin/Breast: Reports system reviewed and no additional complaints, except as docu Neurologic: Reports system reviewed and no additional complaints, except as documented Psychiatric: Psychiatric: Reports no additional psychiatric complaints Endocrine: Endocrine: Reports no additional endocrine complaints Hematologic/Lymphatic: Hematologic/Lymphatic: Reports no additional hematologic/lymphatic complaints Allergic/Immunologic: Allergic/Immunologic: Reports no additional allergic/immunologic complaints PMFSH Past Medical History Medical History Folliculitis Contact dermatitis Anxiety, generalized Social History Social History Smoking status: Current every day smoker Gender identity (if verbalized by the patient): Female Exam Const: General: healthy appearing Nutritional Appearance: well nourished Orientation/consciousness: patient oriented x3 HENMT: Head: normal to inspection Ears: external ears normal Face/Nose/Sinus: Normal external nose present Eyes: Conjunctivae: conjunctivae normal Pupils: Equal, round and reactive pupils present EOM: EOMs intact bilaterally Neck: Neck: normal visual inspection Chest: Chest palpation & inspection: normal inspection of the chest Resp: Effort & Inspection: normal respiratory effort and not labored Auscultation: clear to auscultation bilaterally and no crackles Cardio: Rate: regular rate Rhythm: regular rhythm Heart sounds: no murmurs GI: Inspection: non-distended Auscultation: normal bowel sounds : General: Yes bladder normal to palpation Back/Spine/Pelvis: Back: no CVA tenderness Skin: General skin exam: normal color Rashes: no rashes Wounds: wound noted Other: bilateral upper lip with left greater than right has a small nidus of infection of macular papular and a little bit of pus drainage with erythema base across the upper lip Neuro: General: patient oriented x3 Cranial nerves: Yes Nystagmus not present Speech: normal speech Extrem: General: normal to inspection Psych: Mental Status: mental status grossly normal Affect: normal affect Attitude: cooperative Course Vital Signs Vital signs: Vital Signs Temperature 36.5 C 05/18/24 14:49 Pulse Rate 89 05/18/24 14:49 Respiratory Rate 18 05/18/24 14:49 Blood Pressure 120/86 05/18/24 14:49 Pulse Oximetry 98 05/18/24 14:49 Oxygen Delivery Room Air 05/18/24 14:49 Temperature 36.5 C 05/18/24 14:49 Pulse Rate 89 05/18/24 14:49 Respiratory Rate 18 05/18/24 14:49 Blood Pressure 120/86 05/18/24 14:49 Pulse Oximetry 98 05/18/24 14:49 Oxygen Delivery Room Air 05/18/24 14:49 MDM - Skin/Abscess/Foreign Bdy MDM Narrative Medical decision making narrative: patient is a 43-year-old female with upper lip skin infection. We will do a ntibiotics. Discharge Plan Discharge Clinical Impression: Cellulitis of lip Patient Disposition: Home, Self-Care Condition: Stable Instructions: Antibiotic Form, Cellulitis (ED) Patient Language: Sudanese Prescriptions: New doxycycline hyclate 100 mg capsule 100 mg PO BID 10 Days Qty: 20 0RF Follow-up/Referrals: Shyam Lake MD [Physician] - Time of Disposition: 15:32
--- OUTSIDE RECORDS SUMMARY | 2024-05-18 17:15 | XMS_ITS | Referral Summary ---
Author Organization [facility] Address [address] [place] [id number] Care Team Providers Care Multimedia Authoring Specialist Name Role Phone No, Physician Primary Care Provider [phone] Encounters Date Type Department Care Team Description 03/10/2024 4:21 PM SCHOOL PROGRAM DIRECTOR - 03/10/2024 4:47 PM SCHOOL PROGRAM DIRECTOR Emergency [address] [address] Furuncle of nose (Primary Dx) [...] on file Legal Sex Female 3:50 AM SCHOOL PROGRAM DIRECTOR Gender Identity Not on file Sexual Orientation Not on file Last Filed Vital Signs Vital Sign Reading Time Taken Comments Blood Pressure 129/66 03/10/2024 2:46 PM SCHOOL PROGRAM DIRECTOR Pulse 85 03/10/2024 2:46 PM SCHOOL PROGRAM DIRECTOR Temperature 36.6 C (97.9 F) 03/10/2024 2:46 PM SCHOOL PROGRAM DIRECTOR Respiratory Rate 16 03/10/2024 2:46 PM SCHOOL PROGRAM DIRECTOR Oxygen Saturation 100% 03/10/2024 2:46 PM SCHOOL PROGRAM DIRECTOR Inhaled Oxygen Concentration - - Weight 54.4 kg (120 lb) 03/10/2024 3:26 PM SCHOOL PROGRAM DIRECTOR Height 170.2 cm (5' 7 ) 08/03/2022 6:54 PM CDT Body Mass Index 18.79 08/03/2022 6:54 PM CDT Plan of Treatment Not on file Procedures Procedure Name Priority Date/Time Associated Diagnosis Comments ED INCISION AND DRAINAGE Routine 03/10/2024 4:35 PM SCHOOL PROGRAM DIRECTOR HEPATITIS C ANTIBODY Routine 08/05/2018 9:53 AM CDT from Last 3 Months or Most Recently Relevant to Health Maintenance Results * Incision and Drainage (03/10/2024 4:35 PM SCHOOL PROGRAM DIRECTOR) Narrative Christina Prince PA - 03/10/2024 4:35 PM SCHOOL PROGRAM DIRECTOR Christina Prince PA 03/10/2024 4:36 PM Incision [...] AM CDT) Hep C Ab NONREACT NONREACTIVE [facility] Comment: Siemens CentaurX using GAVIN (chemiluminescent immunoassay) [...] MICROBIOLOGY - GENERAL O RDERABLES Final Result [place] [id number] [place], [place] [id number] [place] [address] from Last 3 Months or Most Recently Relevant to Health Maintenance Insurance Care Teams Multimedia Authoring Specialist Relationship Specialty Start Date End Date No, Physician PCP - General 06/23/18
--- OUTSIDE RECORDS SUMMARY | 2024-05-18 17:15 | XMS_ITS | Clinical Summary ---
Author Organization [facility] Address [address] [place] [id number] Care Team Providers Care Crucible Furnace Tender Name Role Phone No, Physician Primary Care Provider [phone] Allergies Active Allergy Reactions Criticality Noted Date Comments Azithromycin Rash Medium 07/15/2022 Medications HYDROcodone-acet aminophen (NORCO) 5-325 mg per tabletIndication s:Pain Take 1 tablet by mouth every 6 (six) hours as needed for pain 10 tablet 08/03/2022 Active Encounters Date Type Department Care Team Description 03/10/2024 4:21 PM REGISTRAR ASSISTANT - 03/10/2024 4:47 PM [facility] Emergency [address] [address] Furuncle of nose (Primary Dx) [...] on file Legal Sex Female 3:50 AM REGISTRAR ASSISTANT Gender Identity Not on file Sexual Orientation Not on file Obstetrics History Last Filed Vital Signs Vital Sign Reading Time Taken Comments Blood Pressure 129/66 03/10/2024 2:46 PM REGISTRAR ASSISTANT Pulse 85 03/10/2024 2:46 PM REGISTRAR ASSISTANT Temperature 36.6 C (97.9 F) 03/10/2024 2:46 PM REGISTRAR ASSISTANT Respiratory Rate 16 03/10/2024 2:46 PM REGISTRAR ASSISTANT Oxygen Saturation 100% 03/10/2024 2:46 PM REGISTRAR ASSISTANT Inhaled Oxygen Concentration - - Weight 54.4 kg (120 lb) 03/10/2024 3:26 PM REGISTRAR ASSISTANT Height 170.2 cm (5' 7 ) 08/03/2022 [...] INCISION AND DRAINAGE Routine 03/10/2024 4:35 PM REGISTRAR ASSISTANT HEPATITIS C ANTIBODY Routine 08/05/2018 9:53 AM CDT from Last 3 Months or Most Recently Relevant to Health Maintenance Results * Incision and Drainage (03/10/2024 4:35 PM REGISTRAR ASSISTANT) Narrative Christina Prince PA - 03/10/2024 4:35 PM REGISTRAR ASSISTANT Christina Prince PA 03/10/2024 4:36 PM Incision [...] CDT) Hep C Ab NONREACT NONREACTIVE [facility] Comment: Siemens CentaurXP using GAVIN (chemiluminescent immunoassay) [...] MICROBIOLOGY - GENERAL O RDERABLES Final Result [facility] [address] [phone] from Last 3 Months or Most Recently Relevant to Health Maintenance Insurance [facility] Care Teams Crucible Furnace Tender Relationship Specialty Start Date End Date No, Physician PCP - General 06/23/18
--- OUTSIDE RECORDS SUMMARY | 2024-05-18 17:15 | XMS_ITS | Continuity of Care Document ---
Author Organization [facility] Address [address] [place] [address] Phone Care Team Providers Care Fishing Accessories Maker Name Role Phone Ramses ARANGO, R Unavailable Unavailable Advance Directives Directive Yes / No Effective Date File Name No Information Encounters Encounter Description Practice Location Reason(s) For Visit Diagnoses Date Provider Providers Copied on Encounter [facility], [address] [facility], [place], [place], [id number], [place] tel:[phone] [facility] No Information 0 2 Ramses cAkerman [address] [facility], [address], [place], [place], [id number] , [place]. tel:[phone] Family History Family Member Type Diagnosis Age At Onset No Information Payers Payer name Insurance type Covered alliance party ID Authoriza tion(s) No Information Social [...]
--- OUTSIDE RECORDS SUMMARY | 2024-05-18 17:47 | XMS_ITS | Continuity of Care Document ---
Author Organization [facility] Address [address] [place] [address] Phone Care Team Providers Care Cigarette Carton Sealer Name Role Phone Rasmes ARANGO, R Unavailable Unavailable Advance Directives Directive Yes / No Effective Date File Name No Information Encounters Encounter Description Practice Location Reason(s) For Visit Diagnoses Date Provider Providers Copied on Encounter [facility], [address] [facility], [place], [place], [id number], [place] tel:[phone] [facility] No Information 0 2 Ramses Ackerman [address] [facility], [address], [place], [place], [id number] , [place]. tel:[phone] Family History Family Member Type Diagnosis Age [...]
--- OUTSIDE RECORDS SUMMARY | 2024-05-18 17:47 | XMS_ITS | Clinical Summary ---
Author Organization [facility] Address [address] [place] [id number] Care Team Providers Care Repair Armature Winder Name Role Phone No, Physician Primary Care Provider [phone] Allergies Active Allergy Reactions Criticality Noted Date Comments Azithromycin Rash Medium 07/15/2022 Medications HYDROcodone-acet aminophen (NORCO) 5-325 mg per tabletIndication s:Pain Take 1 tablet by mouth every 6 (six) hours as needed for pain 10 tablet 08/03/2022 Active Encounters Date Type Department Care Team Description 03/10/2024 4:21 PM COMPUTER TRAINER - 03/10/2024 4:47 PM [facility] Emergency [address] [address] Furuncle of nose (Primary Dx) [...] on file Legal Sex Female 3:50 AM COMPUTER TRAINER Gender Identity Not on file Sexual Orientation Not on file Obstetrics History Last Filed Vital Signs Vital Sign Reading Time Taken Comments Blood Pressure 129/66 03/10/2024 2:46 PM COMPUTER TRAINER Pulse 85 03/10/2024 2:46 PM COMPUTER TRAINER Temperature 36.6 C (97.9 F) 03/10/2024 2:46 PM COMPUTER TRAINER Respiratory Rate 16 03/10/2024 2:46 PM COMPUTER TRAINER Oxygen Saturation 100% 03/10/2024 2:46 PM COMPUTER TRAINER Inhaled Oxygen Concentration - - Weight 54.4 kg (120 lb) 03/10/2024 3:26 PM COMPUTER TRAINER Height 170.2 cm (5' 7 ) 08/03/2022 [...] INCISION AND DRAINAGE Routine 03/10/2024 4:35 PM COMPUTER TRAINER HEPATITIS C ANTIBODY Routine 08/05/2018 9:53 AM CDT from Last 3 Months or Most Recently Relevant to Health Maintenance Results * Incision and Drainage (03/10/2024 4:35 PM COMPUTER TRAINER) Narrative Christina Prince PA - 03/10/2024 4:35 PM COMPUTER TRAINER Christina Prince PA 03/10/2024 4:36 PM Incision [...] CDT) Hep C Ab NONREACT NONREACTIVE [facility] Comment: Siemens CentaurXP using GAVIN (chemiluminescent immunoassay) [...] - GENERAL O RDERABLES Final Result [facility] [address] [phone] from Last 3 Months or Most Recently Relevant to Health Maintenance Insurance [facility] Care Teams Repair Armature Winder Relationship Specialty Start Date End Date No, Physician PCP - General 06/23/18
--- OUTSIDE RECORDS SUMMARY | 2024-05-18 17:47 | XMS_ITS | Referral Summary ---
Author Organization [facility] Address [address] [place] [address] Care Team Providers Care Campus Security Director Name Role Phone No, Physician Primary Care Provider [phone] Encounters Date Type Department Care Team Description 03/10/2024 4:21 PM WARP SPOOLER - 03/10/2024 4:47 PM WARP SPOOLER Emergency [address] [address] Furuncle of nose (Primary Dx) [...] on file Legal Sex Female 3:50 AM WARP SPOOLER Gender Identity Not on file Sexual Orientation Not on file Last Filed Vital Signs Vital Sign Reading Time Taken Comments Blood Pressure 129/66 03/10/2024 2:46 PM WARP SPOOLER Pulse 85 03/10/2024 2:46 PM WARP SPOOLER Temperature 36.6 C (97.9 F) 03/10/2024 2:46 PM WARP SPOOLER Respiratory Rate 16 03/10/2024 2:46 PM WARP SPOOLER Oxygen Saturation 100% 03/10/2024 2:46 PM WARP SPOOLER Inhaled Oxygen Concentration - - Weight 54.4 kg (120 lb) 03/10/2024 3:26 PM WARP SPOOLER Height 170.2 cm (5' 7 ) 08/03/2022 6:54 PM CDT Body Mass Index 18.79 08/03/2022 6:54 PM CDT Plan of Treatment Not on file Procedures Procedure Name Priority Date/Time Associated Diagnosis Comments ED INCISION AND DRAINAGE Routine 03/10/2024 4:35 PM WARP SPOOLER HEPATITIS C ANTIBODY Routine 08/05/2018 9:53 AM CDT from Last 3 Months or Most Recently Relevant to Health Maintenance Results * Incision and Drainage (03/10/2024 4:35 PM WARP SPOOLER) Narrative Christina Prince PA - 03/10/2024 4:35 PM WARP SPOOLER Christina Prince PA 03/10/2024 4:36 PM Incision [...] CDT) Hep C Ab NONREACT NONREACTIVE [facility] Comment: Siemens CentaurX using GAVIN (chemiluminescent [...] MICROBIOLOGY - GENERAL O RDERABLES Final Result [place] [id number] [place], [place] [id number] [place] [address] from Last 3 Months or Most Recently Relevant to Health Maintenance Insurance Care Teams Campus Security Director Relationship Specialty Start Date End Date No, Physician PCP - General 06/23/18
== END 2024-05-18 15:44 | disposition home or self-care (01) ==
PROVIDERS: Emergency Provider Emergency Medicine
DX: K13.0 Diseases of lips (principal); F17.210 Nicotine dependence, cigarettes, uncomplicated
CPT/HCPCS: 99283